=== PATIENT | female | born 1965 | race Hispanic/Latino ===

== ENCOUNTER 2018-05-21 14:24 | Inpatient (IN) | payer OTHER ==
[~2018-05-21] VITALS: Ht 157.5 cm; Wt 66.4 kg
[2018-05-21 00:45] VITALS: BP 140/73
[~2018-05-21 14:24] MED LIST: ENALAPRIL PO; FAMOTIDINE20 MG PO; FENOFIBRATE160 MG PO; HYDROCHLOROTH12.5 M1 PO; LOSARTAN POTASS50 MG PO; PRAVASTATIN SOD20 MG PO
--- OUTSIDE RECORDS SUMMARY | 2018-05-21 14:26 | XMS REPORT | Clinical Summary ---
Author Author [facility]ALEIGH [facility] Address Unknown Phone Unavailable Care Team Providers Care Environmental Health Safety Engineer Name Role Phone Briana Mallory PCP Allergies No Known Allergies Medications End Date Status Medication Sig Dispensed Refills Start Date Active pravastatin (PRAVACHOL) Take 20 mg by 0 20 MG tablet mouth daily. Active losartan (COZAAR) 50 MG Take 50 mg by 0 tablet mouth daily. Active ergocalciferol (VITAMIN Take 50,000 0 D2) 50,000 unit capsule Units by mouth once a week. Active fenofibrate Take 160 mg 0 (TRIGLIDE,LOFIBRA) 160 MG by mouth tablet daily. Active acetaminophen-codeine Take 1 tablet 30 tablet 0 (TYLENOL #3) 300-30 mg by mouth 8 per tablet every 4 (four) hours as needed for Pain Do not combine with over the counter Tylenol. Max Daily Amount: 6 tablets 02/16/2018 sulfamethoxazole-trimetho Take 1 tablet 14 tablet 0 prim (BACTRIM DS) 800-160 (160 mg of 8 mg per tablet trimethoprim total) by mouth 2 (two) times daily for 7 days. Active Problems Problem Noted Date Urine, incontinence, stress female 02/08/2018 Cystocele with rectocele 02/08/2018 Encounters Care Team Description Date Type Specialty Sheree Pastor MD REPAIR,CYSTOCELE 02/08/2018 Surgery Michele Bonner MD Pancholy, Apurva, MD 02/08/2018 [facility] General Internal Medicine - Encounter 02/09/2018 Michael Zimmerman MD 02/07/2018 Anesthesia Event Josie Gonzáles 01/27/2018 Outside Orders Lab Sheree Pastor MD 01/26/2018 Hospital Pre-Admission Testing Encounter Sheree Pastor MD 01/26/2018 Hospital Pre-Admission Testing Encounter 01/26/2018 Orders Only General Internal Medicine after 05/20/2017 Social History Date Tobacco Use Types Packs/Day Years Used Never Smoker Smokeless Tobacco: Never Used Alcohol Use Drinks/Week oz/Week Comments No Sex Assigned at Date Recorded Not on file Industry Job Start Date Occupation Not on file Not on file Not on file Travel End Travel History Travel Start No recent travel history available. Last Filed Vital Signs Time Taken Vital Sign Reading 02/09/2018 4:06 PM CDT Blood Pressure 123/67 02/09/2018 4:06 PM CDT Pulse 70 02/09/2018 4:06 PM CDT Temperature 36.3 C (97.4 F) 02/09/2018 4:06 PM CDT Respiratory Rate 18 02/09/2018 4:06 PM CDT Oxygen Saturation 97% - Inhaled Oxygen - Concentration 02/08/2018 3:21 PM CDT Weight 64 kg (141 lb) 02/08/2018 3:21 PM CDT Height 157.5 cm (5' 2") 02/08/2018 3:21 PM CDT Body Mass Index 25.79 Plan of Treatment Not on file Implants Device Identifier Shelf Expiration Date Model / Serial / Lot Implanted Type Area Manufactur er 06/23/2019 [id number] / [id number] / [id number] Floseal Vhsd Full Strlprep 5ml Cement/Barry N/A: Vagina LONGORIA:BIO [id number] - [id number] ler/Adhesi SCI Implanted: Qty: 1 on 02/08/2018 by Sheree Scruggs MD 12/12/2020 [id number] / [id number] / [id number] Sys Halo Obtryx Ii [id number] - Urology N/A: Vagina [place] [id number] SCI:UROLOG Implanted: Qty: 1 on 02/08/2018 by Y/Michele Mayen MD GY Procedures Comments Procedure Name Priority Date/Time Associated Diagnosis RHYTHM STRIP - SCAN 02/10/2018 10:32 AM CDT HEMOGLOBIN AND HEMATOCRIT STAT 02/09/2018 1:34 PM CDT POCT-GLUCOSE METER Routine 02/08/2018 9:20 PM CDT TISSUE EXAM AP Routine 02/08/2018 9:28 AM CDT SLING,PUBO VAGINAL 02/08/2018 Urinary incontinence in 7:30 AM CDT female Case Notes 4.5 HOURS REQUES Special Needs (OBTRYX, II SLING, LONG STAR RETRACTOR, 70 DEGREE CYSTOSCOPE , SURGICAL ASSISTS, PHYSICIAN' S OFFICE WILL FIND) CYSTOSCOPY 02/08/2018 Urinary incontinence in 7:30 AM CDT female Case Notes 4.5 HOURS REQUES Special Needs (OBTRYX, II SLING, LONG STAR RETRACTOR, 70 DEGREE CYSTOSCOPE , SURGICAL ASSISTS, PHYSICIAN' S OFFICE WILL FIND) REPAIR,ENTEROCELE 02/08/2018 Urinary incontinence in 7:30 AM CDT female Case Notes 4.5 HOURS REQUES Special Needs (OBTRYX, II SLING, LONG STAR RETRACTOR, 70 DEGREE CYSTOSCOPE , SURGICAL ASSISTS, PHYSICIAN' S OFFICE WILL FIND) COLPORRHAPHY,POSTERIOR 02/08/2018 Urinary incontinence in 7:30 AM CDT female Case Notes 4.5 HOURS REQUES Special Needs (OBTRYX, II SLING, LONG STAR RETRACTOR, 70 DEGREE CYSTOSCOPE , SURGICAL ASSISTS, PHYSICIAN' S OFFICE WILL FIND) REPAIR,CYSTOCELE 02/08/2018 Urinary incontinence in 7:30 AM CDT female Case Notes 4.5 HOURS REQUES Special Needs (OBTRYX, II SLING, LONG STAR RETRACTOR, 70 DEGREE CYSTOSCOPE , SURGICAL ASSISTS, PHYSICIAN' S OFFICE WILL FIND) ECG 12-LEAD Routine 01/26/2018 8:32 AM CDT Procedure Note - Interface, External Ris In - 01/26/2018 5:00 PM CDT Ventricula r Rate 69 BPM Atrial Rate 69 BPM P-R Interval 158 ms QRS Duration 80 ms Q-T Interval 438 ms QTC Calculatio n(Bazett) 469 ms P [place] 49 degrees R [place] -3 degrees T [place] 15 degrees Normal sinus rhythm Normal ECG No previous ECGs available ECG 12-LEAD Routine 01/26/2018 8:32 AM CDT CBC W/PLT COUNT & AUTO Routine 01/26/2018 DIFFERENTIAL 8:30 AM CDT CBC W/PLT COUNT & AUTO Routine 01/26/2018 DIFFERENTIAL 8:30 AM CDT BASIC METABOLIC PANEL (7) Routine 01/26/2018 8:30 AM CDT URINALYSIS W/ MICROSCOPIC Routine 01/26/2018 8:29 AM CDT URINE CULTURE Routine 01/26/2018 8:29 AM CDT after 05/20/2017 Results * RHYTHM STRIP - SCAN (02/10/2018 10:32 AM CDT) Narrative Performed At * Hemoglobin and hematocrit (02/09/2018 1:34 PM CDT) Hemoglobin 11.1 (L) 11.2 - 15.7 GM/DL [facility] Hematocrit 33.7 (L) 34.1 - 44.9 % [facility] Specimen Blood - Arm, Right Performing Organization Address City/[facility] Phone Number [address] [address] [facility] * POC-Glucose meter (02/08/2018 9:20 PM CDT) POC-Glucose Meter 171 (H)Comment: TESTED AT 70 - 110 mg/dL [facility] [address] [address] Specimen Blood Performing Organization Address City/[facility] Phone Number [address] [address] [facility] * Tissue Exam (02/08/2018 9:28 AM CDT) Case Report Surgical Pathology [facility] Case: [id number] Authorizing Provider:Sheree Pastor MD Collected: 02/08/2018 0928 Ordering Location: [facility] PERI[facility] Received: 02/08/2018 1255 SERVICES Pathologist: Lynn Rudolph MD Specimen:Pelvic, pelvic sidewall staple DIAGNOSIS FOREIGN BODY, PELVIS, REMOVAL: [facility] - FOREIGN BODY - METALLIC [facility] STAPLE (GROSS DIAGNOSIS) MR/DB/pl Signing Pathologist Direct Phone Line: [phone] CPT Code(s) 63201 [facility] CLINICAL HISTORY Urinary incontinence [facility] SPECIMEN SOURCE Pelvic side wall staple [facility] GROSS DESCRIPTION Received fresh labeled [facility] "pelvic", description "pelvic [facility] sidewall staple" is a 0.4 cm in greatest dimension metallic staple. The specimen is for gross identification only. DB/pl Specimen Tissue - Pelvic Performing Organization Address [facility] Phone Number [facility] [address] [place] [address] MED[facility]ENTER * ECG 12 lead (01/26/2018 8:32 AM CDT) Narrative Performed At Ventricular Rate 69 BPM GE MUSE Atrial Rate 69 BPM P-R Interval 158 ms QRS Duration 80 ms Q-T Interval 438 ms QTC Calculation(Bazett) 469 ms P [place] 49 degrees R [place] -3 degrees T [place] 15 degrees Normal sinus rhythm Normal ECG No previous ECGs available Confirmed by MD VIVIANA, IHAB ([id number]) on 01/26/2018 10:05:36 PM Procedure Note Interface, External Ris In - 01/26/2018 10:05 PM CDT Ventricular Rate 69 BPM Atrial Rate 69 BPM P-R Interval 158 ms QRS Duration 80 ms Q-T Interval 438 ms QTC Calculation(Bazett) 469 ms P [place] 49 degrees R [place] -3 degrees T [place] 15 degrees Normal sinus rhythm Normal ECG No previous ECGs available Confirmed by MD VIVIANA, IHAB ([id number]) on 01/26/2018 10:05:36 PM Performing Organization Address City/[facility] Phone Number [facility] * CBC with platelet count + automated diff (01/26/2018 8:30 AM CDT) WBC 5.3 3.5 - 10.5 K/L [facility] RBC 4.28 3.93 - 5.22 M/L [facility] Hemoglobin 12.5 11.2 - 15.7 GM/DL [facility] Hematocrit 38.1 34.1 - 44.9 % [facility] MCV 89.0 79.4 - 94.8 fL [facility] MCH 29.2 25.6 - 32.2 pg [facility] MCHC 32.8 32.2 - 35.5 GM/DL [facility] RDW 12.6 11.7 - 14.4 % [facility] Platelets 275 150 - 450 K/CU MM [facility] MPV 10.1 9.4 - 12.3 fL [facility] nRBC 0 0 - 0 /100 WBC [facility] % Neutros 59 % [facility] % Lymphs 30 % [facility] % Monos 7 % [facility] % Eos 3 % [facility] % Baso 1 % [facility] # Neutros 3.13 1.56 - 6.13 K/L [facility] # Lymphs 1.60 1.18 - 3.74 K/L [facility] # Monos 0.35 0.24 - 0.36 K/L [facility] # Eos 0.18 0.04 - 0.36 K/L [facility] # Baso 0.04 0.01 - 0.08 K/L [facility] Immature 0 0 - 1 % [facility] Granulocytes-[facility] CENTER Specimen Blood Performing Organization Address City/State/Zipcode Phone Number [facility] [address] [place] [address] [phone] [place] [address] * Basic Metabolic Panel (01/26/2018 8:30 AM CDT) Sodium 140 136 - 145 meq/L [facility] Potassium 4.0 3.5 - 5.1 meq/L [facility] Chloride 109 (H) 98 - 107 meq/L [facility] CO2 23 22 - 29 meq/L [facility] BUN 16 7 - 21 mg/dL [facility] Creatinine 0.69 0.57 - 1.25 mg/dL [facility] Glucose 100 70 - 105 mg/dL [facility] Calcium 9.5 8.4 - 10.2 mg/dL [facility] EGFR 89Comment: ESTIMATED GFR IS mL/min/1.73 sq m [facility] NOT ACCURATE CREATININE [facility] CLEARANCE IN PREDICTING GLOMERULAR FILTRATION RATE. ESTIMATED GFR IS NOT APPLICABLE FOR DIALYSIS PATIENTS. Specimen Blood Performing Organization Address City/State/Zipcode Phone Number [facility] [address] [place], [place] [address] [place] [address] * Urinalysis w/Microscopic (01/26/2018 8:29 AM CDT) Color, UA Yellow [facility] Clarity, UA Hazy [facility] Specific [place], UA 1.017 1.001 - 1.035 [facility] pH, UA 5.5 5.0 - 8.0 [facility] Protein, UA Negative Negative [facility] Glucose, UA Negative Negative [facility] Ketones, UA Negative Negative [facility] Bilirubin, UA Negative Negative [facility] Blood, UA Negative Negative [facility] Nitrite, UA Negative Negative [facility] Leukocytes, UA Negative Negative [facility] Urobilinogen, UA 0.2 0.2 - 1.0 mg/dL [facility] RBC, UA 1 /HPF [facility] WBC, UA 1 /HPF [facility] Mucus Few [facility] Ca Oxalate Daniela, UA Many [facility] Uric Acid Crystals Rare [facility] Specimen Source [facility] Specimen Urine Performing Organization Address City/[facility] Phone Number [address] [address] [facility] * Urine culture (01/26/2018 8:29 AM CDT) Result <10,000 col/mL skin krzysztof [facility] Specimen Urine Performing Organization Address City/[facility] [place] [place] Phone Number [facility] [address] [place] [address] [facility] after 05/20/2017 Insurance Payer Benefit Subscriber ID Type Phone Address Plan / Group [employer] xxxxxxxxxx [employer] EXCHANGE Advance Directives For more information, please contact: [address] [address] Date Inactivated Comments Code Status Date Activated 02/09/2018 7:45 PM Full Code 02/08/2018 4:06 PM This code status was determined by: Patient
--- OUTSIDE RECORDS SUMMARY | 2018-05-21 14:26 | XMS REPORT ---
Author [facility] Address Unknown Phone Unavailable Care Team Providers Care Wood Fence Installer Name Role Phone EDELMIRA ORDONEZ Unavailable Unavailable IVETTE PASTOR Unavailable Unavailable Problems This patient has no known problems. Allergies, Adverse Reactions, Alerts This patient has no known allergies or adverse reactions. Medications This patient has no known medications. Results Test Description Test Time Test Comments Text Results Atomic Results Result Comments TISSUE EXAM 2018-02-15 07:44:00 Surgical Pathology Report Case: [id number] Authorizing Provider: Ivette Pastor MD Collected: 02/08/2018 0928 Ord ering Location: [facility] PERIOPER[facility] Received: 02/08/2018 1255 SERVICES Pathologist: Lynn Rudolph MD Specimen: Pelvic, pelvic sidewall staple FOREIGN BODY, PELVIS, REMOVAL: - FOREIGN BODY - METALLIC STAPLE (GROSS DIAGNOSIS)MR/DB/pl Signing Pathologist Direct Phone Line: [phone] signed by Lynn Rudolph MD on 02/15/2018 at 7:44 PM12475Cfohmkm incontinencePelvic side wall stapleReceived fresh labeled "pelvic", description "pelvic sidewall staple" is a 0.4 cm in greatest dimension metallic staple. The specimen is for gross identification only. DB/pl HEMOGLOBIN AND HEMATOCRIT 2018-02-09 13:55:00 HEMOGLOBIN (BEAKER) (test hzjo=304) 11.1 GM/DL 11.2-15.7 HEMATOCRIT (BEAKER) (test wdcq=603) 33.7 % 34.1-44.9 POCT-GLUCOSE [id number] 21:26:00* Test Item Value Reference Range Comments POC-GLUCOSE METER (BEAKER) (test dwhb=2795) 171 mg/dL 70-110 [address] [address] URINE [id number] 08:16:00* Test Item Value Reference Range Comments CULTURE (BEAKER) (test jadt=8105) <10,000 col/mL skin krzysztof URINALYSIS W/ [id number] 18:41:00* Test Item Value Reference Range Comments COLOR (BEAKER) (test txyv=161) Yellow CLARITY (BEAKER) (test ebfx=143) Hazy SPECIFIC GRAVITY UA (BEAKER) (test gwwi=002) 1.017 1.001-1.035 PH UA (BEAKER) (test autu=301) 5.5 5.0-8.0 PROTEIN UA (BEAKER) (test tltf=247) Negative Negative GLUCOSE UA (BEAKER) (test caie=839) Negative Negative KETONES UA (BEAKER) (test vlha=344) Negative Negative BILIRUBIN UA (BEAKER) (test bffq=521) Negative Negative BLOOD UA (BEAKER) (test rkeh=037) Negative Negative NITRITE UA (BEAKER) (test juto=127) Negative Negative LEUKOCYTE ESTERASE UA (BEAKER) (test hygo=153) Negative Negative UROBILINOGEN UA (BEAKER) (test nruq=527) 0.2 mg/dL 0.2-1.0 RBC UA (BEAKER) (test bedu=076) 1 /HPF WBC UA (BEAKER) (test anrt=383) 1 /HPF MUCUS (BEAKER) (test wqnk=1148) Few CALCIUM OXALATE CRYSTALS (BEAKER) (test fcrw=921) Many URIC ACID CRYSTALS (BEAKER) (test uwcq=8586) Rare SOURCE(BEAKER) (test fqht=6496) CBC W/PLT COUNT & AUTO [id number] 10:37:00* Test Item Value Reference Range Comments WHITE BLOOD CELL COUNT (BEAKER) (test chei=034) 5.3 K/ L 3.5-10.5 RED BLOOD CELL COUNT (BEAKER) (test uyir=448) 4.28 M/ L 3.93-5.22 HEMOGLOBIN (BEAKER) (test fihy=900) 12.5 GM/DL 11.2-15.7 HEMATOCRIT (BEAKER) (test qttg=758) 38.1 % 34.1-44.9 MEAN CORPUSCULAR VOLUME (BEAKER) (test xrpc=088) 89.0 fL 79.4-94.8 MEAN CORPUSCULAR HEMOGLOBIN (BEAKER) (test iuvo=058) 29.2 pg 25.6-32.2 MEAN CORPUSCULAR HEMOGLOBIN CONC (BEAKER) (test ldkd=183) 32.8 GM/DL 32.2-35.5 RED CELL DISTRIBUTION WIDTH (BEAKER) (test kfvx=695) 12.6 % 11.7-14.4 PLATELET COUNT (BEAKER) (test wxta=500) 275 K/CU MM 150-450 MEAN PLATELET VOLUME (BEAKER) (test cmqe=203) 10.1 fL 9.4-12.3 NUCLEATED RED BLOOD CELLS (BEAKER) (test fbdf=755) 0 /100 WBC 0-0 NEUTROPHILS RELATIVE PERCENT (BEAKER) (test iraj=863) 59 % LYMPHOCYTES RELATIVE PERCENT (BEAKER) (test llve=289) 30 % MONOCYTES RELATIVE PERCENT (BEAKER) (test lbva=667) 7 % EOSINOPHILS RELATIVE PERCENT (BEAKER) (test rgtl=417) 3 % BASOPHILS RELATIVE PERCENT (BEAKER) (test azjh=232) 1 % NEUTROPHILS ABSOLUTE COUNT (BEAKER) (test zmgu=042) 3.13 K/ L 1.56-6.13 LYMPHOCYTES ABSOLUTE COUNT (BEAKER) (test asgz=579) 1.60 K/ L 1.18-3.74 MONOCYTES ABSOLUTE COUNT (BEAKER) (test bswr=741) 0.35 K/ L 0.24-0.36 EOSINOPHILS ABSOLUTE COUNT (BEAKER) (test vdcn=640) 0.18 K/ L 0.04-0.36 BASOPHILS ABSOLUTE COUNT (BEAKER) (test kzod=195) 0.04 K/ L 0.01-0.08 IMMATURE GRANULOCYTES-RELATIVE PERCENT (BEAKER) (test gcvw=0876) 0 % 0-1 BASIC METABOLIC [id number] 10:10:00* Test Item Value Reference Range Comments SODIUM (BEAKER) (test uqta=717) 140 meq/L 136-145 POTASSIUM (BEAKER) (test mdkl=988) 4.0 meq/L 3.5-5.1 CHLORIDE (BEAKER) (test vqms=339) 109 meq/L 98-107 CO2 (BEAKER) (test agss=817) 23 meq/L 22-29 BLOOD UREA NITROGEN (BEAKER) (test bemk=190) 16 mg/dL 7-21 CREATININE (BEAKER) (test kyxo=650) 0.69 mg/dL 0.57-1.25 GLUCOSE RANDOM (U.S. TrailMapsAKER) (test fnnx=572) 100 mg/dL 70-105 CALCIUM (U.S. TrailMapsAKER) (test nqko=548) 9.5 mg/dL 8.4-10.2 EGFR (M-DISC) (test jpsq=0022) 89 mL/min/1.73 sq m ESTIMATED GFR IS NOT ACCURATE CREATININE CLEARANCE IN PREDICTING GLOMERULAR FILTRATION RATE. ESTIMATED GFR IS NOT APPLICABLE FOR DIALYSIS PATIENTS.
--- OUTSIDE RECORDS SUMMARY | 2018-05-21 14:26 | XMS REPORT | Summary of Care ---
Author Author TERI Hernandez, IVETTE Organization Unknown Address [facility] Phone Unavailable Care Team Providers Care Drama Professor Name Role Phone IVETTE WILLIAMSON M.D. 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 Vaginal enterocele (618.6, N81.5) Status: Active Cystocele Status: Active Mixed incontinence urge and stress (788.33, N39.46) Status: Active Inadequate pelvic muscles (728.9, M62.9) Status: Active Pelvic pain (R10.2) Status: Active Sexual dysfunction in females (302.70, F52.9) Status: Active Dyspareunia, female (625.0, N94.10) Status: Active Atrophic vaginitis (627.3, N95.2) Status: Active Rectocele (618.04, N81.6) Status: Active Encounter for surgical aftercare following surgery of genitourinary system (V58.76, Z48.816) Status: Active Medications Name Dates Details Vitamin D TABS Active Vitamin B-12 TABS * Refills: 0 Active Fenofibrate 160 MG Oral Tablet * Refills: 0 Active Losartan Potassium 50 MG Oral Tablet * Refills: 0 Active Premarin 0.625 MG/GM Vaginal Cream INSERT 0.5 GRAM INTRAVAGINALLY AT BEDTIME 2 TIMES A WEEK. FOR EXAMPLE ON Tuesday AND THURSDAYS. * Quantity: 1 Refills: 1 IVETTE WILLIAMSON M.D. * Start : 29-Sep-2017 Active 30 GM Tube Allergies and Adverse Reactions Name Dates Details No Known Drug Allergies (Allergy) Status: Active Past Medical History Name Dates Details History of bladder infections (V13.02, Z87.440) Status: Resolved History of hypertension (V12.59, Z86.79) Status: Resolved History of Migraines (346.90, G43.909) Status: Resolved Procedures Procedure Dates Details History of Hysterectomy Completed Comments: Completed: 2005 History of Bladder surgery Completed Comments: Completed: 2006 History of Knee surgery Completed Comments: Completed: 2003 History of Back surgery Completed Comments: Completed: 2003 History of Back surgery Completed Comments: Completed: 2004 History of Ovarian cystectomy Completed History of Umbilical hernia repair Completed Comments: Completed: 2011 Immunization Name Dates Details Immunizations not documented Family History Name Dates Details Family history of diabetes mellitus (V18.0, Z83.3) Status: Active Family history of hypertension (V17.49, Z82.49) Status: Active Name Dates Details Family history of cardiac disorder (V17.49, Z82.49) Status: Active Family history of hypertension (V17.49, Z82.49) Status: Active Social History Name Dates Details - Status: Name Dates Details Never smoker Vital Signs Date Test Result Details 64-Eum-61604:11 BP Systolic 105 mm[Hg] Status: Comments: Location: [facility]; Position: Sitting BP Diastolic 70 mm[Hg] Status: Comments: Location: [facility]; Position: Sitting Height 62 in Status: Weight 140.125 lb Status: Body Mass Index Calculated 25.63 kg/m2 Status: Body Surface Area Calculated 1.64 m2 Status: Temperature 97.7 f Status: Comments: Method: Oral Heart Rate 60 /min Status: Comments: Location: [facility]; 7-Izu-453236:10 BP Systolic 120 mm[Hg] Status: Comments: Location: [facility]; Position: Sitting BP Diastolic 71 mm[Hg] Status: Comments: Location: [facility]; Position: Sitting Height 62 in Status: Weight 139.25 lb Status: Body Mass Index Calculated 25.47 kg/m2 Status: Body Surface Area Calculated 1.64 m2 Status: Temperature 98.2 f Status: Comments: Method: Oral Heart Rate 73 /min Status: Comments: Location: [facility]; Results Date Description Value Details Results not documented Plan of Care Name Dates Details Planned Observations Planned Goals not documented Planned Encounters Appointment; IVETTE WILLIAMSON M.D. On: 20-Sep-2018 13:40 Interventions Provided Medication Changes* Premarin 0.625 MG/GM Vaginal Cream - Renew Instructions* Patient Specific Education Given; Done: 22 Mar 2018 Discussion/Summary* Discharge instructions discussed with pt . May resume activities, avoid 20 lbs lifting. * Vaginal estrogen therapy * Fiber regimen was advised * Advised to see PCP or general surgeon for abdominal pain. Possible umbilical hernia related symptoms. * Seeing Dr. Bonner. * Follow up in 6 months. Instructions Name Dates Details Instructions not documented Encounters Appointment; IVETTE WILLIAMSON M.D. Encounter Diagnosis: Problem not documented On: 29-Sep-2017 10:00 Appointment; IVETTE WILLIAMSON M.D. Encounter Diagnosis: Problem not documented On: 14-Oct-2017 10:40 Appointment; IVETTE WILLIAMSON M.D. Encounter Diagnosis: Problem not documented On: 08-Feb-2018 7:30 Appointment; IVETTE WILLIAMSON M.D. Encounter Diagnosis: Problem not documented On: 22-Feb-2018 13:00 Appointment; IVETTE WILLIAMSON M.D. Encounter Diagnosis: Problem not documented On: 22-Mar-2018 9:20
[2018-05-21] MEDS ORDERED: SODIUM CHLORIDE 0.9% 1000ML 1,000 ML IV STA (14:44)
[2018-05-21] MEDS ORDERED: DIATRIZOATE MEGL/DIATRIZOA SOD 30 ML BTL PO ONE (15:01)
[2018-05-21] MEDS ORDERED: FAMOTIDINE 20 MG/2 ML VIAL IV ONE (15:15)
[2018-05-21] MEDS ORDERED: MORPHINE SULFATE INJ 4 MG/ML INJ IV ONE (15:15)
[2018-05-21] MEDS ORDERED: ONDANSETRON HCL INJ 2 MG/ML VIAL IV ONE (15:15)
[2018-05-21 15:26] LABS: BASOPHILS # (AUTO) 0.1 (0.0-0.1); BASOPHILS % 0.5 % (0.0-1.0); EOSINOPHILS # (AUTO) 0.2 (0.0-0.4); EOSINOPHILS % 2.2 % (0.0-6.0); HEMATOCRIT 41.1 % (34.2-44.1); HEMOGLOBIN 13.7 g/dL (12.0-16.0); LYMPHOCYTES # (AUTO) 2.2 (1.0-3.2); LYMPHOCYTES % 21.1 % (18.0-39.1); MEAN CORPUSCULAR HEMOGLOBIN 29.1 pg (28-32); MEAN CORPUSCULAR HGB CONC 33.3 g/dL (31-35); MEAN CORPUSCULAR VOLUME 87.4 fL (81-99); MONOCYTES # (AUTO) 0.5 (0.2-0.8); MONOCYTES % 4.3 % (4.4-11.3); NEUTROPHILS # (AUTO) 7.5 (2.1-6.9); NEUTROPHILS % 71.5 % (38.7-80.0); PLATELET COUNT 359 x10e3/uL (140-360); RED CELL DISTRIBUTION WIDTH 12.2 % (11.7-14.4)
[2018-05-21 15:28] LABS: CLARITY,URINE CLEAR (CLEAR); COLOR,URINE YELLOW (YELLOW)
[2018-05-21 15:29] LABS: BILIRUBIN,URINE NEGATIVE (NEGATIVE); KETONES,URINE NEGATIVE (NEGATIVE); LEUKOCYTE ESTERASE ,URINE NEGATIVE (NEGATIVE); NITRITE,URINE NEGATIVE (NEGATIVE); PROTEIN,URINE DIPSTICK NEGATIVE (NEGATIVE); URINE UROBILINOGEN 0.2 mg/dL (0.2 - 1)
[2018-05-21 15:40] LABS: BACTERIA,URINE RARE /HPF; EPITHELIAL CELLS,URINE FEW /LPF; MUCUS,URINE FEW (RARE); RBC,URINE 0-5 /HPF (0-5); WBC,URINE (MAN) 0-5 /HPF (0-5)
[2018-05-21 15:42] LABS: ALANINE AMINOTRANSFERASE 20 IU/L (0-55); ALBUMIN 4.7 g/dL (3.5-5.0); ALBUMIN/GLOBULIN RATIO 1.5 (0.8-2.0); ALKALINE PHOSPHATASE 65 IU/L (40-150); AMYLASE 71 U/L (25-125); ANION GAP 13.7 mmol/L (8-16); BLOOD UREA NITROGEN 11 mg/dL (7-26); BUN/CREATININE RATIO 16 (6-25); CALCIUM 9.8 mg/dL (8.4-10.2); CARBON DIOXIDE 22 mmol/L (22-29); CHLORIDE 107 mmol/L (98-107); EST GLOMERULAR FILTRATION RATE > 60 ML/MIN (60-); GLUCOSE 98 mg/dL (74-118); LIPASE 18 U/L (8-78); POTASSIUM 3.7 mmol/L (3.5-5.1); SODIUM 139 mmol/L (136-145)
--- NOTE | 2018-05-21 16:42 | Diagnostic Imaging Report ---
ADDENDUM #1 Dose reduction techniques used: Automated exposure control, adjustment of the mAs and/or kVp according to patient size, standardized low-dose protocol, and/or iterative reconstruction technique. Signed by: Dr. Anna Salvador MD on 06/02/2018 12:[address] Abdomen And Pelvis with Intravenous Contrast INDICATION: Abdominal pain and nausea TECHNIQUE: Thin collimation axial images obtained from the diaphragm to the level of the pubic symphysis following the uneventful administration of 100 cc of low osmolar, nonionic intravenous contrast. Oral contrast was administered. RADIATION DOSE: Total DLP: 302.4 mGy*cm Estimated effective dose: (DLP x 0.015 x size factor) mSv CTDIvol has been reviewed. It is below the limits set by the Radiation Protocol Committee (RPC). COMPARISON: CT abdomen performed at [facility] 02/17/2016. ABDOMEN FINDINGS: Lung Bases: There is a 4 mm calcified granuloma in the left lung base, stable. No infiltrates or pleural effusions. Visualized portion of the mediastinum is unremarkable. Liver: Decreased attenuation suggestive of steatosis. No evidence for mass. Calcification or clip adjacent to the inferior tip of segment 6 is stable. Gallbladder: Absent. No biliary ductal dilatation. Pancreas: Normal attenuation without mass or ductal dilatation. Spleen: Low attenuating lesion in the inferior pole measures 11 x 14 mm and may contain a septation.. Adrenal Glands: No evidence for mass. Kidneys: Right: Normal enhancement. No soft tissue mass. No hydronephrosis. Left: Normal enhancement. No soft tissue mass. No hydronephrosis. Lymph Nodes: No enlarged abdominal or retroperitoneal lymph nodes.. Aorta: Normal in diameter with scattered calcifications. PELVIS FINDINGS: Bowel: Stomach: Distended with enteric contrast. No mural thickening. Small Bowel: Small amount of enteric contrast in fluid distended loops of jejunum. There are unopacified small bowel loops in the midabdomen measuring up to 3.0 cm. There are fecalized enteric contents in the midabdomen small bowel loops. Distal small bowel loops are collapsed. No pneumatosis. Large Bowel: Collapsed. A few scattered diverticula are present without associated inflammation. Appendix: Normal appendix. Bladder: Normal. The uterus is absent. Low attenuating left ovarian lesion measures 2.8 x 2.5 cm. The right ovary is normal. No free fluid or fluid collection. Bones: There is fusion hardware in the T11 and T12 vertebral bodies to the left of midline. Pedicle screws and vertical stabilizing bars are present at L5-S1 with artificial disc plug. The hardware is intact and stable without surrounding lucency to suggest loosening. IMPRESSION: 1. Partial small bowel obstruction. No evidence of perforation. No evidence of bowel inflammation. Diverticulosis coli. Normal appendix. 2. Steatosis. 3. Cholecystectomy and hysterectomy. 4. Prominent left ovary suggestive of underlying follicle or cyst. 5. Stable fusion hardware of the thoracic and lumbar spine. Signed by: Dr. Anna Salvador MD on 05/21/2018 4:39 PM
[2018-05-21] MEDS ORDERED: PROMETHAZINE HCL (IM) 25 MG/ML VIAL IV PRN (18:00)
[2018-05-21] MEDS ORDERED: ONDANSETRON HCL INJ 2 MG/ML VIAL IV PRN (18:00)
[2018-05-21] MEDS ORDERED: HYDROMORPHONE 2MG/ML 2 MG/ML ML IV PRN (18:00)
--- OUTSIDE RECORDS SUMMARY | 2018-05-21 18:24 | XMS REPORT | Clinical Summary ---
Author Author KALEIGH [facility] Address Unknown Phone Unavailable Care Team Providers Care Endorsement Clerk Name Role Phone Briana Mallory PCP Allergies [...] Michele Bonner MD Pancholy, Apurva, MD 02/08/2018 [facility] - Encounter 02/09/2018 Michael Zimmerman MD 02/07/2018 Anesthesia Event Josie oGnzáles 01/27/2018 Outside Orders Lab Sheree Pastor MD [...] Lot Implanted Type Area Manufactur er 06/23/2019 [id number] / [id number] / [id number] Floseal Vhsd Full Strlprep 5ml Cement/Barry N/A: Vagina LONGORIA:BIO [id number] - [id number] ler/Adhesi SCI Implanted: Qty: 1 on 02/08/2018 by Sheree Scruggs MD 12/12/2020 [id number] / [id number] / [id number] Sys Halo Obtryx Ii [id number] - Urology N/A: Vagina [place] [id number] SCI:UROLOG Implanted: Qty: 1 on 02/08/2018 by [...] ms QTC Calculatio n(Bazett) 469 ms P Buhler 49 degrees R Buhler -3 degrees T Buhler 15 degrees Normal sinus rhythm Normal ECG [...] Hemoglobin 11.1 (L) 11.2 - 15.7 GM/DL [facility] Hematocrit 33.7 (L) 34.1 - 44.9 % [facility] Specimen Blood - Arm, Right Performing Organization Address City/[facility] Phone Number [address] [address] [facility] * POC-Glucose meter (02/08/2018 9:20 PM CDT) POC-Glucose Meter 171 (H)Comment: TESTED AT 70 - 110 mg/dL [facility] [address] [address] Specimen Blood Performing Organization Address City/[facility] Cent[facility]ode Phone Number [address] [address] [facility] * Tissue Exam (02/08/2018 9:28 AM CDT) Case Report Surgical Pathology [facility] Case: [id number] Authorizing Provider:Sheree Pastor MD Collected: 02/08/2018 0928 Ordering Location: [facility] PERI[facility] Received: 02/08/2018 1255 SERVICES Pathologist: Lynn Rudolph MD Specimen:Pelvic, pelvic sidewall staple DIAGNOSIS FOREIGN BODY, PELVIS, REMOVAL: [facility] - FOREIGN BODY - METALLIC [facility] STAPLE (GROSS DIAGNOSIS) MR/DB/pl Signing Pathologist Direct Phone Line: [phone] CPT Code(s) 55068 [facility] CLINICAL HISTORY Urinary incontinence [facility] SPECIMEN SOURCE Pelvic side wall staple [facility] GROSS DESCRIPTION Received fresh labeled [facility] "pelvic", description "pelvic [facility] sidewall staple" is a 0.4 cm in greatest dimension metallic staple. The specimen is for gross identification only. DB/pl Specimen Tissue - Pelvic Performing Organization Address [facility] Cent[facility]ode Phone Number [facility] [address] [place] [address] MEDICAL CENTER * ECG 12 lead (01/26/2018 8:32 AM CDT) Narrative Performed At Ventricular Rate 69 BPM GE MUSE Atrial Rate 69 BPM P-R Interval 158 ms QRS Duration 80 ms Q-T Interval 438 ms QTC Calculation(Bazett) 469 ms P Buhler 49 degrees R Buhler -3 degrees T Buhler 15 degrees Normal sinus rhythm Normal ECG No previous ECGs available Confirmed by MD VIVIANA, IHAB ([id number]) on 01/26/2018 10:05:36 PM Procedure Note Interface, External Ris In - 01/26/2018 10:05 PM CDT Ventricular Rate 69 BPM Atrial Rate 69 BPM P-R Interval 158 ms QRS Duration 80 ms Q-T Interval 438 ms QTC Calculation(Bazett) 469 ms P Buhler 49 degrees R Buhler -3 degrees T Buhler 15 degrees Normal sinus rhythm Normal ECG No previous ECGs available Confirmed by MD VIVIANA, IHAB ([id number]) on 01/26/2018 10:05:36 PM Performing Organization Address City/[facility]ode Phone Number [employer] [facility] * CBC with platelet count + automated diff (01/26/2018 8:30 AM CDT) WBC 5.3 3.5 - 10.5 K/L [facility] RBC 4.28 3.93 - 5.22 M/L [facility] Hemoglobin 12.5 11.2 - 15.7 GM/DL [facility] Hematocrit 38.1 34.1 - 44.9 % [facility] MCV 89.0 79.4 - 94.8 fL [facility] MCH 29.2 25.6 - 32.2 pg [facility] MCHC 32.8 32.2 - 35.5 GM/DL [facility] RDW 12.6 11.7 - 14.4 % [facility] Platelets 275 150 - 450 K/CU MM [facility] MPV 10.1 9.4 - 12.3 fL [facility] nRBC 0 0 - 0 /100 WBC [facility] % Neutros 59 % [facility] % Lymphs 30 % [facility] % Monos 7 % [facility] % Eos 3 % [facility] % Baso 1 % [facility] # Neutros 3.13 1.56 - 6.13 K/L [facility] # Lymphs 1.60 1.18 - 3.74 K/L [facility] # Monos 0.35 0.24 - 0.36 K/L [facility] # Eos 0.18 0.04 - 0.36 K/L [facility] # Baso 0.04 0.01 - 0.08 K/L [facility] Immature 0 0 - 1 % [facility] Granulocytes-[facility] CENTER Specimen Blood Performing Organization Address City/State/Zipcode Phone Number [facility] [address] [place] [address] [phone] [place] [address] * Basic Metabolic Panel (01/26/2018 8:30 AM CDT) Sodium 140 136 - 145 meq/L [facility] Potassium 4.0 3.5 - 5.1 meq/L [facility] Chloride 109 (H) 98 - 107 meq/L [facility] CO2 23 22 - 29 meq/L [facility] BUN 16 7 - 21 mg/dL [facility] Creatinine 0.69 0.57 - 1.25 mg/dL [facility] Glucose 100 70 - 105 mg/dL [facility] Calcium 9.5 8.4 - 10.2 mg/dL [facility] EGFR 89Comment: ESTIMATED GFR IS mL/min/1.73 sq m [facility] NOT ACCURATE CREATININE [facility] CLEARANCE IN PREDICTING GLOMERULAR FILTRATION RATE. ESTIMATED GFR IS NOT APPLICABLE FOR DIALYSIS PATIENTS. Specimen Blood Performing Organization Address City/State/Zipcode Phone Number [facility] [address] [place], [place] [phone] [place] [address] * Urinalysis w/Microscopic (01/26/2018 8:29 AM CDT) Color, UA Yellow [facility] Clarity, UA Hazy [facility] Specific [place], UA 1.017 1.001 - 1.035 [facility] pH, UA 5.5 5.0 - 8.0 [facility] Protein, UA Negative Negative [facility] Glucose, UA Negative Negative [facility] Ketones, UA Negative Negative [facility] Bilirubin, UA Negative Negative [facility] Blood, UA Negative Negative [facility] Nitrite, UA Negative Negative [facility] Leukocytes, UA Negative Negative [facility] Urobilinogen, UA 0.2 0.2 - 1.0 mg/dL [facility] RBC, UA 1 /HPF [facility] WBC, UA 1 /HPF [facility] Mucus Few [facility] Ca Oxalate Daniela, UA Many [facility] Uric Acid Crystals Rare [facility] Specimen Source [facility] Specimen Urine Performing Organization Address City/[facility] Centercode Phone Number [address] [address] [facility] * Urine culture (01/26/2018 8:29 AM CDT) Result <10,000 col/mL skin krzysztof [facility] Specimen Urine Performing Organization Address City/[facility] Phone Number [facility] [address] [place] [address] [address] [facility] after 05/20/2017 Insurance Payer Benefit Subscriber ID Type Phone Address Plan / Group Stylenda xxxxxxxxxx BridgPLAC E EXCHANGE Advance Directives For more information, please contact: [address] [address] Date Inactivated Comments Code Status Date Activated 02/09/2018 7:45 PM Full Code 02/08/2018 4:06 PM This code status was determined by: Patient
[2018-05-21] MEDS: D5.45%NS/KCL 20MEQ 1,000 ML IV SCH (18:45)
[2018-05-21 23:15] VITALS: BP 140/73
[2018-05-22] VITALS (8 sets, daily range): BP systolic 107–150; BP diastolic 59–84
[2018-05-22] MEDS ORDERED: IOPAMIDOL 370 MG/ML 200 ML INFUS..BTL INJ ONE (00:28)
[2018-05-22] MEDS ORDERED: SODIUM CHLORIDE 0.9% 50ML 50 ML ONE (00:28)
[2018-05-22] MEDS: D5.45%NS/KCL 20MEQ 1,000 ML IV SCH ×3 (02:55→17:09)
[2018-05-22 05:36] LABS: ANION GAP 10.9 mmol/L (8-16); BLOOD UREA NITROGEN 7 mg/dL (7-26); BUN/CREATININE RATIO 11 (6-25); CARBON DIOXIDE 24 mmol/L (22-29); CHLORIDE 107 mmol/L (98-107); CREATININE, SERUM 0.63 mg/dL (0.57-1.11); EST GLOMERULAR FILTRATION RATE > 60 ML/MIN (60-); GLUCOSE 122 mg/dL (74-118); POTASSIUM 3.9 mmol/L (3.5-5.1); SODIUM 138 mmol/L (136-145)
[2018-05-22] MEDS: METOCLOPRAMIDE HCL 10 MG/2ML VIAL IV SCH ×3 (06:30→21:23)
--- NOTE | 2018-05-22 06:31 | Diagnostic Imaging Report ---
ABDOMEN-1VIEW (KUB) Clinical history: Abdominal pain, small bowel obstruction Technique: AP view abdomen Comparison: CT from 05/21/2018 Findings: Single provided supine AP view. Hemidiaphragms are excluded from view. No dilated loops of small or large bowel. Right upper quadrant clips and osseous hardware are noted. Impression: No radiographic evidence of bowel obstruction. Signed by: Dr Julianne Thomas MD on 05/22/2018 6:28 AM
[2018-05-22 07:33] LABS: BASOPHILS % 0.4 % (0.0-1.0); EOSINOPHILS % 0.6 % (0.0-6.0); HEMATOCRIT 35.5 % (34.2-44.1); HEMOGLOBIN 11.6 g/dL (12.0-16.0); LYMPHOCYTES # (AUTO) 1.7 (1.0-3.2); LYMPHOCYTES % 23.6 % (18.0-39.1); MEAN CORPUSCULAR HEMOGLOBIN 28.7 pg (28-32); MEAN CORPUSCULAR HGB CONC 32.7 g/dL (31-35); MEAN CORPUSCULAR VOLUME 87.9 fL (81-99); MONOCYTES # (AUTO) 0.4 (0.2-0.8); MONOCYTES % 5.8 % (4.4-11.3); NEUTROPHILS # (AUTO) 4.9 (2.1-6.9); NEUTROPHILS % 69.3 % (38.7-80.0); PLATELET COUNT 305 x10e3/uL (140-360); RED BLOOD COUNT 4.04 x10e6/uL (3.6-5.1); RED CELL DISTRIBUTION WIDTH 12.5 % (11.7-14.4)
--- NOTE | 2018-05-22 07:55 | History and Physical ---
PRIMARY CARE PHYSICIAN: Dr. Mallory CHIEF COMPLAINT: Nausea, vomiting, abdominal pain. HISTORY OF PRESENT ILLNESS: This is a 52-year-old woman with a history of hypertension and a history of hysterectomy and cholecystectomy, now developing right abdominal pain with nausea and vomiting ongoing for 1 day. She came to the hospital and was found to have partial small-bowel obstruction. She was admitted for further evaluation and management. She had a colonoscopy about [address] Burnett which she states only showed polyps. PAST MEDICAL HISTORY: Hypertension, colonic polyps in 2015. PAST SURGICAL HISTORY: Hysterectomy, cholecystectomy, knee surgery. ALLERGIES: PER ELECTRONIC MEDICAL RECORD. FAMILY AND SOCIAL HISTORY: The patient is . She has 4 children. No alcohol, illicits or cigarettes. MEDICATIONS: Per electronic medical record. REVIEW OF SYSTEMS: Denies any dizziness, chest pain, shortness of breath, fever, chills, sweats, headache, vision changes, leg pain. PHYSICAL EXAMINATION VITAL SIGNS: Have been reviewed. GENERAL: A tired-appearing woman resting in bed. HEENT: Anicteric. Pupils are responsive to light. No oral lesions. CARDIOVASCULAR: Normal S1 and S2. LUNGS: Moderate breath sounds. ABDOMEN: Soft, nondistended. She has minimal tenderness in the epigastric/right upper quadrant abdominal region. No rebound or guarding. Garsia sign is negative. EXTREMITIES: No edema or calf tenderness. NEUROLOGIC: Alert and oriented times 3, moving all extremities. SKIN: Dry. PSYCHIATRIC: Normal affect. LABS: Reviewed. MEDICATIONS: Reviewed. ASSESSMENT: This is a 52-year-old woman. 1. Partial small-bowel obstruction. 2. Right upper quadrant abdominal pain in a patient with a history of cholecystectomy. 3. Steatosis. 4. Gastroesophageal reflux disease. 5. Hyperlipidemia. 6. Hypertension. PLAN 1. Use prokinetic agent. 2. Ambulate the patient. 3. Conservative management initially. 4. Rehydrate the patient. 5. Follow up surgical recommendations. 6. Prophylaxis. Will use Pepcid b.i.d. IV and use SCDs. 7. Disposition: Ambulate the patient. Reassess. Follow up surgical recommendations. Job#: [id number]
[2018-05-22] MEDS: FAMOTIDINE 20 MG/2 ML VIAL IV SCH ×2 (09:29→17:09)
[2018-05-23] VITALS (8 sets, daily range): BP systolic 110–157; BP diastolic 65–84
[2018-05-23] MEDS: D5.45%NS/KCL 20MEQ 1,000 ML IV SCH ×3 (01:58→17:25)
--- NOTE | 2018-05-23 09:01 | Diagnostic Imaging Report ---
Abdomen, one view dated 05/23/2018 at 6:17 AM. History: Possible bowel obstruction. Comparison: 05/22/2018 Findings: The intestinal gas pattern is nonobstructive. Residual GI contrast within portions of the colon that is nondilated is noted. No small bowel dilatation There no masses or abnormal calcifications. Clips in the right upper quadrant from a previous cholecystectomy. Orthopedic hardware overlies T11-T12 and L5-S1. IMPRESSION: No evidence of obstruction. Signed by: Dr. Sukhdeep Aiken DO on 05/23/2018 8:58 AM
[2018-05-23] MEDS: METOCLOPRAMIDE HCL 10 MG/2ML VIAL IV SCH ×2 (09:16→21:44)
[2018-05-23] MEDS: FAMOTIDINE 20 MG/2 ML VIAL IV SCH ×2 (09:16→17:25)
[2018-05-23 09:32] LABS: MAGNESIUM 2.5 MG/DL (1.3-2.1); POTASSIUM 3.8 mmol/L (3.5-5.1)
[2018-05-23] MEDS: CEFTRIAXONE SOD 1 GM VIAL IV SCH (10:15)
[2018-05-24] VITALS: BP 113/66
[2018-05-24] MEDS: D5.45%NS/KCL 20MEQ 1,000 ML IV SCH ×2 (02:36→09:50)
[2018-05-24 04:00] VITALS: BP 109/62
[2018-05-24 04:38] LABS: BASOPHILS # (AUTO) 0.1 (0.0-0.1); EOSINOPHILS # (AUTO) 0.3 (0.0-0.4); EOSINOPHILS % 5.7 % (0.0-6.0); HEMATOCRIT 32.8 % (34.2-44.1); HEMOGLOBIN 11.2 g/dL (12.0-16.0); LYMPHOCYTES # (AUTO) 2.2 (1.0-3.2); LYMPHOCYTES % 43.5 % (18.0-39.1); MEAN CORPUSCULAR HEMOGLOBIN 29.4 pg (28-32); MEAN CORPUSCULAR HGB CONC 34.1 g/dL (31-35); MEAN CORPUSCULAR VOLUME 86.1 fL (81-99); MONOCYTES # (AUTO) 0.3 (0.2-0.8); MONOCYTES % 6.3 % (4.4-11.3); NEUTROPHILS # (AUTO) 2.2 (2.1-6.9); NEUTROPHILS % 43.3 % (38.7-80.0); PLATELET COUNT 267 x10e3/uL (140-360); RED BLOOD COUNT 3.81 x10e6/uL (3.6-5.1); RED CELL DISTRIBUTION WIDTH 12.4 % (11.7-14.4)
[2018-05-24 04:59] LABS: ANION GAP 12.7 mmol/L (8-16); BLOOD UREA NITROGEN 6 mg/dL (7-26); BUN/CREATININE RATIO 9 (6-25); CALCIUM 9.1 mg/dL (8.4-10.2); CARBON DIOXIDE 23 mmol/L (22-29); CHLORIDE 107 mmol/L (98-107); CREATININE, SERUM 0.65 mg/dL (0.57-1.11); EST GLOMERULAR FILTRATION RATE > 60 ML/MIN (60-); GLUCOSE 101 mg/dL (74-118); POTASSIUM 3.7 mmol/L (3.5-5.1); SODIUM 139 mmol/L (136-145)
[2018-05-24] MEDS ORDERED: SENNA LAX8.6 MG PO (06:52)
[2018-05-24] MEDS ORDERED: REGLAN5 MG PO (06:52)
[2018-05-24] MEDS ORDERED: COLACE100 MG PO (06:52)
[2018-05-24] MEDS ORDERED: KEFLEX500 MG PO (06:54)
[2018-05-24 08:00] VITALS: BP 136/65
[2018-05-24] MEDS: FAMOTIDINE 20 MG/2 ML VIAL IV SCH (08:46)
[2018-05-24] MEDS: CEFTRIAXONE SOD 1 GM VIAL IV SCH (08:46)
[2018-05-24] MEDS: METOCLOPRAMIDE HCL 10 MG/2ML VIAL IV SCH (08:46)
[2018-05-24 12:00] VITALS: BP 124/60
== END 2018-05-24 16:47 | disposition home or self-care (01) | DRG 389 ==
LOC: ER 14:24 → ERHOLD 17:50 → MED/SURG2 23:22
PROVIDERS: ADMIT Internal Medicine; ATTEND Internal Medicine
DX: K56.51 Intestinal adhesions [bands], with partial obstruction (principal); N39.0 Urinary tract infection, site not specified; E86.0 Dehydration; I10 Essential (primary) hypertension; E88.89 Other specified metabolic disorders; E78.5 Hyperlipidemia, unspecified
CPT/HCPCS: 36415; 74018; 74177; 80048; 80053; 81001; 82150; 83690; 83735; 84132; 85025; 87086; 99284; J0696; J2270; J2405; J2765; J7030; Q9967

== ENCOUNTER → 2018-06-06 | Day surgery (SDC) | payer OTHER ==
[2018-05-17 15:32] LABS: BASOPHILS % 0.6 % (0.0-1.0); EOSINOPHILS # (AUTO) 0.3 (0.0-0.4); EOSINOPHILS % 5.4 % (0.0-6.0); HEMATOCRIT 38.3 % (34.2-44.1); HEMOGLOBIN 12.7 g/dL (12.0-16.0); LYMPHOCYTES # (AUTO) 2.2 (1.0-3.2); LYMPHOCYTES % 34.8 % (18.0-39.1); MEAN CORPUSCULAR HEMOGLOBIN 29.1 pg (28-32); MEAN CORPUSCULAR HGB CONC 33.2 g/dL (31-35); MEAN CORPUSCULAR VOLUME 87.6 fL (81-99); MONOCYTES # (AUTO) 0.5 (0.2-0.8); MONOCYTES % 8.5 % (4.4-11.3); NEUTROPHILS # (AUTO) 3.2 (2.1-6.9); NEUTROPHILS % 50.2 % (38.7-80.0); PLATELET COUNT 307 x10e3/uL (140-360); RED BLOOD COUNT 4.37 x10e6/uL (3.6-5.1); RED CELL DISTRIBUTION WIDTH 12.5 % (11.7-14.4)
[~2018-06-06] MED LIST changes: +COLACE100 MG PO; +FENTANYL CITRATE/PF 100MCG/2 ML INJ ONE; +KEFLEX500 MG PO; +LIDOCAINE HCL 2% LOCAL INJ 5 ML SDV VIAL INJ ONE; +MIDAZOLAM HCL 2 MG/2 ML VIAL ONE; +PROPOFOL IV EMULSION 10 MG/ML 50 ML VIAL ONE; +REGLAN5 MG PO; +SENNA LAX8.6 MG PO
--- OUTSIDE RECORDS SUMMARY | 2018-06-06 05:41 | XMS REPORT | Clinical Summary ---
Author Author KALEIGH [facility] Address Unknown Phone Unavailable Care Team Providers Care Director Of Emergency Nursing Name Role Phone Briana Mallory PCP Allergies [...] Encounters Care Team Description Date Type Specialty Michael Zimmerman MD 02/08/2018 Anesthesia Event Sheree Pastor MD REPAIR,CYSTOCELE 02/08/2018 Surgery Michele Bonner MD Pancholy, Apurva, MD 02/08/2018 Hospital General Internal Medicine - Encounter 02/09/2018 Josie Gonzáles 01/27/2018 Outside Orders Lab Sheree Pastor MD 01/26/2018 Hospital Pre-Admission Testing Encounter Sheree Pastor MD 01/26/2018 Hospital Pre-Admission Testing Encounter 01/26/2018 Orders Only General Internal Medicine after 06/05/2017 Social History Date Tobacco Use Types Packs/Day [...] Lot Implanted Type Area Manufactur er 06/23/2019 [id number] / [id number] / [id number] Floseal Vhsd Full Strlprep 5ml Cement/Barry N/A: Vagina LONGORIA:BIO [id number] - [id number] ler/Adhesi SCI Implanted: Qty: 1 on 02/08/2018 by Sheree Scruggs MD 12/12/2020 [id number] / [id number] / [id number] Sys Halo Obtryx Ii [id number] - Urology N/A: Vagina [place] [id number] SCI:UROLOG Implanted: Qty: 1 on 02/08/2018 by [...] ms QTC Calculatio n(Bazett) 469 ms P Lowell 49 degrees R Lowell -3 degrees T Lowell 15 degrees Normal sinus rhythm Normal ECG [...] CULTURE Routine 01/26/2018 8:29 AM CDT after 06/05/2017 Results * RHYTHM STRIP - SCAN (02/10/2018 10:32 AM CDT) Narrative Performed At * Hemoglobin and hematocrit (02/09/2018 1:34 PM CDT) Hemoglobin 11.1 (L) 11.2 - 15.7 GM/DL [facility] Hematocrit 33.7 (L) 34.1 - 44.9 % [facility] Specimen Blood - Arm, Right Performing Organization Address City/[facility] Phone Number [address] [address] [facility] * POC-Glucose meter (02/08/2018 9:20 PM CDT) POC-Glucose Meter 171 (H)Comment: TESTED AT 70 - 110 mg/dL [facility] [address] [address] Specimen Blood Performing Organization Address City/[facility]ode Phone Number [address] [address] [facility] * Tissue Exam (02/08/2018 9:28 AM CDT) Case Report Surgical Pathology [facility] Case: [id number] Authorizing Provider:Sheree Pasotr MD Collected: 02/08/2018 0928 Ordering Location: [facility] PERIOPERATIVE Received: 02/08/2018 1255 SERVICES Pathologist: Lnyn Rudolph MD Specimen:Pelvic, pelvic sidewall staple DIAGNOSIS FOREIGN BODY, PELVIS, REMOVAL: [facility] - FOREIGN BODY - METALLIC [facility] STAPLE (GROSS DIAGNOSIS) MR/DB/pl Signing Pathologist Direct Phone Line: [phone] CPT Code(s) 84092 [facility] CLINICAL HISTORY Urinary incontinence [facility] SPECIMEN SOURCE Pelvic side wall staple [facility] GROSS DESCRIPTION Received fresh labeled [facility] "pelvic", description "pelvic [facility] sidewall staple" is a 0.4 cm in greatest dimension metallic staple. The specimen is for gross identification only. DB/pl Specimen Tissue - Pelvic Performing Organization Address [facility] Centercode Phone Number [facility] [address] [place] [address] MEDICAL CENTER * ECG 12 lead (01/26/2018 8:32 AM CDT) Narrative Performed At Ventricular Rate 69 BPM GE MUSE Atrial Rate 69 BPM P-R Interval 158 ms QRS Duration 80 ms Q-T Interval 438 ms QTC Calculation(Bazett) 469 ms P Lowell 49 degrees R Lowell -3 degrees T Lowell 15 degrees Normal sinus rhythm Normal ECG No previous ECGs available Confirmed by MD VIVIANA, IHAB ([id number]) on 01/26/2018 10:05:36 PM Procedure Note Interface, External Ris In - 01/26/2018 10:05 PM CDT Ventricular Rate 69 BPM Atrial Rate 69 BPM P-R Interval 158 ms QRS Duration 80 ms Q-T Interval 438 ms QTC Calculation(Bazett) 469 ms P Lowell 49 degrees R Lowell -3 degrees T Lowell 15 degrees Normal sinus rhythm Normal ECG No previous ECGs available Confirmed by MD VIVIANA, IHAB ([id number]) on 01/26/2018 10:05:36 PM Performing Organization Address City/[facility]ode Phone Number [employer] [facility] * CBC with platelet count + automated diff (01/26/2018 8:30 AM CDT) WBC 5.3 3.5 - 10.5 K/L [facility] RBC 4.28 3.93 - 5.22 M/L [facility] Hemoglobin 12.5 11.2 - 15.7 GM/DL [facility] Hematocrit 38.1 34.1 - 44.9 % [facility] MCV 89.0 79.4 - 94.8 fL [facility] MCH 29.2 25.6 - 32.2 pg [facility] MCHC 32.8 32.2 - 35.5 GM/DL [facility] RDW 12.6 11.7 - 14.4 % [facility] Platelets 275 150 - 450 K/CU MM [facility] MPV 10.1 9.4 - 12.3 fL [facility] nRBC 0 0 - 0 /100 WBC [facility] % Neutros 59 % [facility] % Lymphs 30 % [facility] % Monos 7 % [facility] % Eos 3 % [facility] % Baso 1 % [facility] # Neutros 3.13 1.56 - 6.13 K/L [facility] # Lymphs 1.60 1.18 - 3.74 K/L [facility] # Monos 0.35 0.24 - 0.36 K/L [facility] # Eos 0.18 0.04 - 0.36 K/L [facility] # Baso 0.04 0.01 - 0.08 K/L [facility] Immature 0 0 - 1 % [facility] Granulocytes-[facility] CENTER Specimen Blood Performing Organization Address City/State/Zipcode Phone Number [facility] [address] [place] [address] [phone] [place] [address] * Basic Metabolic Panel (01/26/2018 8:30 AM CDT) Sodium 140 136 - 145 meq/L [facility] Potassium 4.0 3.5 - 5.1 meq/L [facility] Chloride 109 (H) 98 - 107 meq/L [facility] CO2 23 22 - 29 meq/L [facility] BUN 16 7 - 21 mg/dL [facility] Creatinine 0.69 0.57 - 1.25 mg/dL [facility] Glucose 100 70 - 105 mg/dL [facility] Calcium 9.5 8.4 - 10.2 mg/dL [facility] EGFR 89Comment: ESTIMATED GFR IS mL/min/1.73 sq m [facility] NOT ACCURATE CREATININE [facility] CLEARANCE IN PREDICTING GLOMERULAR FILTRATION RATE. ESTIMATED GFR IS NOT APPLICABLE FOR DIALYSIS PATIENTS. Specimen Blood Performing Organization Address City/State/Zipcode Phone Number [facility] [address] [place], [place] [phone] [place] [address] * Urinalysis w/Microscopic (01/26/2018 8:29 AM CDT) Color, UA Yellow [facility] Clarity, UA Hazy [facility] Specific [place], UA 1.017 1.001 - 1.035 [facility] pH, UA 5.5 5.0 - 8.0 [facility] Protein, UA Negative Negative [facility] Glucose, UA Negative Negative [facility] Ketones, UA Negative Negative [facility] Bilirubin, UA Negative Negative [facility] Blood, UA Negative Negative [facility] Nitrite, UA Negative Negative [facility] Leukocytes, UA Negative Negative [facility] Urobilinogen, UA 0.2 0.2 - 1.0 mg/dL [facility] RBC, UA 1 /HPF [facility] WBC, UA 1 /HPF [facility] Mucus Few [facility] Ca Oxalate Daniela, UA Many [facility] Uric Acid Crystals Rare [facility] Specimen Source [facility] Specimen Urine Performing Organization Address City/[facility]ercode Phone Number [address] [address] [facility] * Urine culture (01/26/2018 8:29 AM CDT) Result <10,000 col/mL skin krzysztof [facility] Specimen Urine Performing Organization Address City/[facility] Phone Number [facility] [address] [place] [address] [facility] after 06/05/2017 Insurance Payer Benefit Subscriber ID Type Phone Address Plan / Group [employer] xxxxxxxxxx GreenpiePLAC E EXCHANGE Advance Directives For more information, please contact: [address] [address] Date Inactivated Comments Code Status Date Activated 02/09/2018 7:45 PM Full Code 02/08/2018 4:06 PM This code status was determined by: Patient
[2018-06-06 09:50] VITALS: BP 137/70
== END | disposition home or self-care (01) ==
LOC: OR 05:39
PROVIDERS: ATTEND Internal Medicine Gastroenterology
DX: K21.9 Gastro-esophageal reflux disease without esophagitis (principal); K31.7 Polyp of stomach and duodenum; K29.50 Unspecified chronic gastritis without bleeding; K31.89 Other diseases of stomach and duodenum; K44.9 Diaphragmatic hernia without obstruction or gangrene; R13.10 Dysphagia, unspecified; K58.9 Irritable bowel syndrome, unspecified; M54.9 Dorsalgia, unspecified; I10 Essential (primary) hypertension; E78.5 Hyperlipidemia, unspecified; M26.609 Unspecified temporomandibular joint disorder, unspecified side; Z01.810 Encounter for preprocedural cardiovascular examination; Z01.812 Encounter for preprocedural laboratory examination
CPT/HCPCS: 36415; 43239; 85025; 93005; J2001; J2250; 43235

== ENCOUNTER → 2018-08-08 | Outpatient (CLI) | payer OTHER ==
[~2018-08-08] MED LIST changes: -FENTANYL CITRATE/PF 100MCG/2 ML INJ ONE; -LIDOCAINE HCL 2% LOCAL INJ 5 ML SDV VIAL INJ ONE; -MIDAZOLAM HCL 2 MG/2 ML VIAL ONE; -PROPOFOL IV EMULSION 10 MG/ML 50 ML VIAL ONE
--- NOTE | 2018-08-08 15:50 | Diagnostic Imaging Report ---
Examination: Fluoroscopic small bowel series. Clinical indication: Partial small bowel obstruction. Comparison examination: CT abdomen and pelvis 05/21/2018. Technique: Oral barium was ingested. Multiple fluoroscopic images of the small bowel and proximal large bowel were obtained. Fluoroscopy time: 0.4 minutes Air Kerma: 4.52 mGy Findings: Contract Admin: The bowel gas pattern shows no dilated, air-filled loops of bowel. Gas and fecal material is noted throughout the colon. Lumbar spine fusion hardware is again noted, as are multiple cholecystectomy clips, one of which is displaced along the right liver edge. Small bowel series: Small bowel loops are normal in caliber and distribution. No stricture or gross mass lesion is appreciated. Peristalsis, as observed under fluoroscopy, is normal. Spot compression views of the terminal ileum are normal. Transit time is normal. Impression: Unremarkable fluoroscopic small bowel series. No evidence of small bowel obstruction. Signed by: Dr. Dontrell Quintero M.D. on 08/08/2018 3:47 PM
== END ==
LOC: DX 07-14 06:14
PROVIDERS: ATTEND Internal Medicine Gastroenterology
DX: K56.600 Partial intestinal obstruction, unspecified as to cause (principal)
CPT/HCPCS: 74250

== ENCOUNTER → 2018-10-02 | Outpatient (CLI) | payer OTHER ==
--- NOTE | 2018-10-02 13:13 | Diagnostic Imaging Report ---
MRCP CPT code: 47601 History: Several months of right upper quadrant pain Comparison: CT abdomen/pelvis 05/21/2018. Technique: Multiplanar, multisequence images of the abdomen were obtained per MRCP protocol. 3D volume rendered reformation images of the biliary tree were performed. No intravenous gadolinium was administered. Findings: Mild intrahepatic ductal dilatation without beading or narrowing. The common hepatic duct measures 6 mm in diameter. The common bile duct measures 8 mm in diameter and tapers as it approaches the ampulla. No intraluminal filling defects. The pancreas duct is not dilated. Gallbladder: Absent Liver: Loss of signal on opposed phase sequence consistent with steatosis. Calculated hepatic fat percentage is 26.8% consistent with moderate steatosis. No evidence of mass. Spleen: Normal size and signal. High T2 signal lobulated lesion in the inferior spleen measures 1.4 x 1.3 cm. This is stable. Pancreas: Mild fatty atrophy. A cyst in the inferior head/uncinate measures 7 x 8 mm and is stable (series 8, image 18). No connection to the main pancreas duct. Kidneys: No hydronephrosis. A cyst in the medial upper pole measures 7 mm. Adrenal glands: No mass Lymph nodes: No enlarged abdominal or periaortic lymph nodes. Bowel: Stomach and visualized portions of the small bowel and large bowel are normal in diameter with normal wall thickness. Lung bases: Clear. Peritoneum/retroperitoneum: No free fluid or fluid collection. Vasculature: Normal in morphology. Pelvis: Visualized pelvic organs are unremarkable. Bones: Postoperative changes of the lower thoracic and lower lumbar spine from fusion. Marrow signal is normal. No focal osseous lesions. Soft tissues: There is blooming artifact in the posterior left upper quadrant, likely from surgery. IMPRESSION: 1. Cholecystectomy with mild distention of the biliary tree likely secondary to reservoir effect. No evidence of choledocholithiasis. 2. Cyst in the inferior pancreas head/uncinate process. Recommend annual surveillance with MRI to confirm stability. No associated pancreas ductal dilatation. 3. Stable lobulated mass in the spleen. 4. Moderate steatosis. Thank you for your referral. Signed by: Dr. Anna Salvador MD on 10/02/2018 1:09 PM
== END ==
LOC: MRI 08:45
PROVIDERS: ATTEND Internal Medicine Gastroenterology
DX: R10.11 Right upper quadrant pain (principal)
CPT/HCPCS: 74181

== ENCOUNTER → 2019-06-26 | Outpatient (CLI) | payer OTHER ==
[2019-06-26 09:06] LABS: BLOOD UREA NITROGEN 12 mg/dL (7-26); BUN/CREATININE RATIO 18 (6-25); CREATININE, SERUM 0.65 mg/dL (0.57-1.11); EST GLOMERULAR FILTRATION RATE > 60 ML/MIN (60-)
--- NOTE | 2019-06-26 11:22 | Diagnostic Imaging Report ---
MRCP (magnetic resonance cholangiopancreatography) without and with. HISTORY: Pancreas cyst Comparison: MRCP from 10/02/2018 Technique: Multiplanar and multisequence MRI images of the abdomen were obtained before and after the administration of 14 cc of MultiHance. Three-dimensional reconstructed images of the biliary tree are also reviewed. FINDINGS: The liver is normal in size and contour. There is loss of signal on out of phase images consistent with hepatic steatosis. No focal lesion or enhancing mass is identified. There is patent conventional hepatic arterial supply. The portal system and SMV are patent. The gallbladder is surgically absent. There is no intrahepatic biliary ductal dilatation. There is mild prominence of common bile duct measuring up to 8 mm, unchanged from the prior examination. There is no evidence for filling defect or strictures. There is a stable T2 hyperintense, nonenhancing lesion within the inferior pole the spleen measuring 1.4 x 1.3 cm. The bilateral adrenal glands are unremarkable. There is a stable 8 mm cystic structure identified within the inferior pancreas head/uncinate without evidence for communication to the pancreatic duct. The pancreatic duct is not dilated. The kidneys are normal in size and location and enhance symmetrically. A stable subcentimeter cyst is noted within the upper pole the right kidney. The visualized loops of bowel are unremarkable. There is no ascites. No abnormally enlarged lymph nodes are identified within the abdomen. Impression: 1. Stable mild prominence of the common bile duct measuring up to 8 mm likely reflecting post cholecystectomy status. No evidence for biliary obstruction, stricture, or filling defect. 2. Stable subcentimeter cyst identified within the pancreas, unchanged from the prior examination from 10/02/2018. 3. Stable cystic lesion within the spleen. 4. Hepatic steatosis. Signed by: Dr. Eros Harper MD on 06/26/2019 11:18 AM
== END ==
LOC: MRI 08:15
PROVIDERS: ATTEND Internal Medicine Gastroenterology
DX: K86.2 Cyst of pancreas (principal)
CPT/HCPCS: 36415; 74183; 82565; 84520